=== PATIENT | female | born 1945 | race Two or more races ===

== ENCOUNTER 2019-12-29 22:02 | Emergency (ER) | payer SELFPAY ==
[~2019-12-29] VITALS: Ht 157.5 cm; Wt 52.2 kg
[2019-12-29 22:10] VITALS: BP 205/105
--- NOTE | 2019-12-29 22:10 | NUR ---
ED Nurse Note: Patient was BIBA in to ED by [facility] 13 from home c/o headache for 1 hour. Patient is hypertensive at 179/99 at bed side. Patient stated has some visual change. AAO x4, VSS at this time, skin is warm to touch.
[2019-12-29 22:31] LABS: BASOPHILS % (AUTO) 0.9 % (0.0-2.0); EOSINOPHILS % (AUTO) 10.1 % (0.0-3.0); HEMATOCRIT 41.4 % (37.0-47.0); HEMOGLOBIN 14.8 G/DL (12.0-16.0); LYMPHOCYTES % (AUTO) 26.4 % (20.0-45.0); MEAN CORPUSCULAR VOLUME 87 FL (80-99); MONOCYTES % (AUTO) 8.4 % (1.0-10.0); NEUTROPHILS % (AUTO) 54.2 % (45.0-75.0); PLATELET COUNT 261 K/UL (150-450); RED BLOOD COUNT 4.75 M/UL (4.20-5.40); RED CELL DISTRIBUTION WIDTH 11.3 % (11.6-14.8); WHITE BLOOD COUNT 10.1 K/UL (4.8-10.8)
[2019-12-29 22:39] LABS: APPEARANCE,URINE SLIGHTLY CLOUDY; COLOR,URINE PALE YELLOW; GLUCOSE, URINE (UA) NEGATIVE (NEGATIVE); KETONES,URINE NEGATIVE (NEGATIVE); LEUKOCYTE ESTERASE ,URINE 3+ (NEGATIVE); PROTEIN,URINE NEGATIVE (NEGATIVE)
[2019-12-29 22:40] LABS: BILIRUBIN, URINE NEGATIVE (NEGATIVE); NITRITE,URINE NEGATIVE (NEGATIVE); UROBILINOGEN,URINE NORMAL MG/DL (0.0-1.0)
[2019-12-29 22:44] LABS: ANION GAP 10 mmol/L (5-15); BLOOD UREA NITROGEN 20 mg/dL (7-18); CALCIUM 9.5 MG/DL (8.5-10.1); CARBON DIOXIDE 26 MMOL/L (21-32); CHLORIDE 104 MMOL/L (98-107); CREATININE 0.6 MG/DL (0.55-1.30); POTASSIUM 3.7 MMOL/L (3.5-5.1); SODIUM 140 MMOL/L (136-145)
--- NOTE | 2019-12-29 23:04 | Diagnostic Imaging Report ---
Indications: Headache for one hour Technique: Spiral acquisitions obtained through the brain. Angled axial and coronal 5 x 5 mm slices were reconstructed. Total dose length product a 92 mGycm. CTDI vol(s) 53 mGy. Dose reduction achieved using automated exposure control Comparison: None. Findings: There is mild age-related enlargement of the and extra-axial CSF spaces, minimal prominence of the ventricles. No acute intracranial hemorrhage or edema. No mass effect or midline shift. There is old lacunar infarct in the left external capsule region. Li-white differentiation is normal. Visualized orbits and sinuses are unremarkable. The mastoids are clear. 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 The CT scanner at [facility] is accredited by the [employer] and the scans are performed using protocols designed to limit radiation exposure to as low as reasonably achievable to attain images of sufficient resolution adequate for diagnostic evaluation.
[2019-12-29] MEDS ORDERED: cefTRIAXone 1 GM in NS 55 ML IVPB ONE (23:15)
[2019-12-29] MEDS ORDERED: BENAZEPRIL-HCT1 EAC2 ORAL (23:21)
[2019-12-29] MEDS ORDERED: CEPHALEXIN500 MG ORAL (23:22)
--- NOTE | 2019-12-29 23:22 | Emergency Room Report ---
History of Present Illness General Chief Complaint: Headache Source: Patient Present Illness HPI Is a 74-year-old female who just immigrated from [facility] 3 weeks ago. She is currently taking enalapril but almost out of it. She presents with chief, headache. Family went to the fire station because complaint of headache. Her blood pressure was 200/100. No trauma. No nausea no vomiting no chest pain. Denies any other complaint. Nothing made it better. Nothing made it worse. Allergies: Coded Allergies: No Known Allergies (Unverified , 12/29/19) Patient History Past Medical History: see triage record, old chart reviewed, HTN Past Surgical History: none Pertinent Family History: none Social History: Denies: smoking Last Menstrual Period: n/a Now: No Immunizations: other Reviewed Nursing Documentation: PMH: Agreed; PSxH: Agreed Nursing Documentation-PMH Past Medical History: No History, Except For Hx Hypertension: Yes Review of Systems Eye: Denies: eye pain, blurred vision ENT: Denies: ear pain, nose congestion, throat swelling Respiratory: Denies: cough, shortness of breath Cardiovascular: Denies: chest pain, palpitations Gastrointestinal: Denies: abdominal pain, diarrhea, nausea, vomiting Musculoskeletal: Denies: back pain, joint pain Skin: Denies: rash Neurological: Reports: headache; Denies: numbness Endocrine: Denies: increased thirst, increased urine Hematologic/Lymphatic: Denies: easy bruising All Other Systems: negative except mentioned in HPI Physical Exam Vital Signs Date Time Temp Pulse Resp B/P (MAP) Pulse Ox O2 Delivery O2 Flow Rate FiO2 12/29/19 21:53 98.2 78 18 205/105 (138) 99 Room Air Vitals with high blood pressure Sp02 EP Interpretation: reviewed, normal General Appearance: well appearing, no apparent distress, alert Head: normocephalic, atraumatic Eyes: bilateral eye PERRL, bilateral eye EOMI ENT: hearing grossly normal, normal pharynx Neck: full range of motion, supple, no meningismus Respiratory: chest non-tender, lungs clear, normal breath sounds Cardiovascular #1: regular rate, rhythm, no murmur Gastrointestinal: normal bowel sounds, non tender, no mass, no organomegaly, no bruit, non-distended Musculoskeletal: back normal, normal range of motion, gait/station normal Psychiatric: mood/affect normal Medical Decision Making Diagnostic Impression: Primary Impression: Headache Qualified Codes: G44.209 - Tension-type headache, unspecified, not intractable Additional Impressions: Hypertension Qualified Codes: I10 - Essential (primary) hypertension UTI (urinary tract infection) ER Course Patient presents with headache and high blood pressure. No evidence of any endorgan damage. No evidence of any intracranial bleed or neoplastic process or meningitis. Improved now. Will discharge home. CT/MRI/US Diagnostic Results CT/MRI/US Diagnostic Results : Imaging Test Ordered: CT head Impression Negative per radiologist Last Vital Signs Date Time Temp Pulse Resp B/P (MAP) Pulse Ox O2 Delivery O2 Flow Rate FiO2 12/29/19 22:22 89 179/99 12/29/19 22:10 98.2 18 99 Room Air Status: improved Disposition: HOME, SELF-CARE Condition: Stable Scripts Cephalexin* (KEFLEX*) 500 Mg Capsule 500 MG ORAL TID, #21 CAP Prov: Syed Rodriguze MD 12/29/19 Benazepril/Hydrochlorothiazide (BENAZEPRIL-HCTZ 20-25 MG TAB) 1 Each Tablet 1 TAB ORAL DAILY, #90 TAB Prov: Syed Rodriguez MD 12/29/19 Additional Instructions: Follow-up with your doctor in 7 days. Return if symptoms worsen. Syed Rodriguez MD Dec 29, 2019 23:22
[2019-12-29 23:57] VITALS: BP 149/76
--- NOTE | 2019-12-29 23:57 | NUR ---
ER DISCHARGE NOTE: Patient is cleared to be discharged per ERMD, pt is aox4, on room air, with stable vital signs. pt was given dc and prescription instructions, pt was able to verbalize understanding, pt id band and iv site removed without complications. pt is able to ambulate with steady gait. pt took all belongings.
== END 2019-12-29 23:57 | disposition home or self-care (01) ==
LOC: EDBD 22:02 → EMR 23:00
DX: G44.209 Tension-type headache, unspecified, not intractable (principal); I10 Essential (primary) hypertension; N39.0 Urinary tract infection, site not specified
CPT/HCPCS: 36415; 70450; 80048; 81001; 84484; 85025; 87086; 93005; 96365; 96375; 99284; J0360; J0696